=== PATIENT | female | born 1985 | race African-American/Black ===

== ENCOUNTER 2019-02-05 11:11 | Day surgery (SDC) | payer OTHER ==
[2019-02-02 11:51] VITALS: BMI 46.5
[2019-02-05] MEDS ORDERED: BUPIVACAINE HCL/PF 0.5% (5MG/ML) 10 ML VIAL ONE (11:50)
[2019-02-05] MEDS ORDERED: MORPHINE SULFATE 10 MG/1 ML *VIAL ONE (11:58)
[2019-02-05] MEDS ORDERED: KETOROLAC TROMETHAMINE 30 MG/1 ML VIAL ONE (12:19)
[2019-02-05] MEDS ORDERED: ONDANSETRON 4 MG/2 ML VIAL ONE (12:19)
[2019-02-05] MEDS ORDERED: DEXAMETHASONE SOD PHOSPHATE 4 MG/1 ML VIAL ONE (12:19)
[2019-02-05] MEDS ORDERED: SODIUM CHLORIDE 0.9% P/F 10 ML VIAL IJ ONE (12:19)
[2019-02-05] MEDS ORDERED: ceFAZolin SODIUM 1 GM VIAL ONE (12:19)
[2019-02-05] MEDS ORDERED: LIDOCAINE HCL/PF 2% SDV 5ML VIAL ONE (12:19)
[2019-02-05] MEDS ORDERED: PROPOFOL 20 ML ONE (12:31)
[2019-02-05] MEDS ORDERED: BUPIVACAINE HCL/PF 0.5% (5MG/ML) 10 ML VIAL IJ ONE ×2 (12:49→12:59)
--- NOTE | 2019-02-05 13:41 | OP ---
DATE OF OPERATION: 02/05/2019 PREOPERATIVE DIAGNOSIS: Torn medial meniscus to the left knee. POSTOPERATIVE DIAGNOSES: 1. Torn medial and lateral meniscus. 2. 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 3. Extensive hypertrophic synovium. 4. Extensive joint debris. PROCEDURES PERFORMED: 1. Operative arthroscopy of the left knee with Partial medial and lateral meniscectomy 2. Chondroplasty with chondral shaving 3. Extensive synovectomy 4. Extensive joint debridement. SURGEON: Hilton Buckley MD COMMUNITY LEADER: DEMETRIUS Palm ANESTHESIA: Jose Chow MD, General Anesthesia. DESCRIPTION OF PROCEDURE: The procedure consisted of the patient being brought into the operating room and gently transferred from the stretcher to the OR table with all bony prominences well padded. The left leg was prepared and draped in a sterile fashion. Patient was given intravenous antibiotics and copious irrigation throughout the procedure to minimize risk of infection. A complete risk, benefit, alternative discussion, which was inclusive of, but not limited to, infection, bleeding, , paralysis, increased pain, need for repeat surgery. Patient asked questions, understood the procedure, and desired to proceed with surgical treatment. Following sterile preparation and draping of the left leg, the patient was given appropriate time-out, which was inclusive of, but not limited to, type of surgery, site of surgery, surgeon, and the anesthesiologist. Following the sterile preparation and draping of the left leg, the leg was exsanguinated using rubber Esmarch bandage and the tourniquet inflated to 350 mmHg. Suprapatellar medial and lateral joint line portals were used to induce the arthroscope and arthroscopic instruments. The knee was examined. There was noted to be hypertrophic synovium in the suprapatellar pouch. Partial synovectomy was performed, which was an extensive synovectomy. The inferior surface of the patella had damage consistent with chondromalacia and fissuring, and this was smoothed using shaver and radiofrequency wand, and a chondroplasty was performed. Medial and lateral gutters without plica or loose body. Medial meniscus was examined and found to have a tear of the posterior horn, and this which was resected using shaver and radiofrequency wand. Intercondylar region was noted to have extensive joint debris, and an extensive joint debridement was performed. Lateral meniscus was found to have a tear in the posterior horn, and this was resected using a shaver and radiofrequency wand. The knee joint was then copiously irrigated with sterile saline irrigant. The wounds were closed with 4 -0 undyed Vicryl followed by Steri-Strips, Xeroform, 4 x 4's, sterile Webril, ALBAN bandage, and a knee immobilizer. Tourniquet was deflated after approximately 20 minutes of tourniquet time. There were no intraoperative complications. Donovan Cornejo was critical for assisting during surgery, holding the arthroscope while I used the arthroscopic shaver and radio frequency wand. He provided critical support and safety in surgical treatment. HILTON BUCKLEY M.D. [id number] MTDD
[2019-02-05] MEDS ORDERED: ONDANSETRON 4 MG/2 ML VIAL IVPUSH PRN (14:09)
[2019-02-05] MEDS ORDERED: oxyCODONE HCL 5 MG TABLET PO PRN (14:09)
[2019-02-05] MEDS ORDERED: LACTATED RINGERS SOLUTION 1,000 ML IV SCH (14:15)
[2019-02-05 15:05] VITALS: PULSE 67; TEMP 98.2
[2019-02-05 16:32] VITALS: BP 134/78
== END 2019-02-05 16:15 | disposition home or self-care (01) ==
LOC: FASU 11:11
PROVIDERS: ATTEND Orthopaedic Surgery
PROC: 0SBD4ZZ Excision of Left Knee Joint, Percutaneous Endoscopic Approach (ICD-10-PCS; 2019-02-05)
PROC: 0SBD4ZZ Excision of Left Knee Joint, Percutaneous Endoscopic Approach (ICD-10-PCS; 2019-02-05)
PROC: 0SBD4ZZ Excision of Left Knee Joint, Percutaneous Endoscopic Approach (ICD-10-PCS; 2019-02-05)
PROC: 0SBD4ZZ Excision of Left Knee Joint, Percutaneous Endoscopic Approach (ICD-10-PCS; principal; 2019-02-05 12:30)
DX: S83.242A Other tear of medial meniscus, current injury, left knee, initial encounter (principal); S83.282A Other tear of lateral meniscus, current injury, left knee, initial encounter; M67.262 Synovial hypertrophy, not elsewhere classified, left lower leg; M25.862 Other specified joint disorders, left knee; M24.10 Other articular cartilage disorders, unspecified site; X58.XXXA Exposure to other specified factors, initial encounter; Y93.9 Activity, unspecified; Y92.9 Unspecified place or not applicable
CPT/HCPCS: 29876; 29880; G0289; 84703; 94760